=== PATIENT | male | born 1965 ===

== ENCOUNTER 2018-05-03 09:41 | Day surgery (SDC) | payer BC ==
[2018-04-29 13:48] VITALS: BMI 23.2
[2018-05-03 10:18] VITALS: TEMP 98.2
[2018-05-03] MEDS ORDERED: LACTATED RINGERS 1,000 ML IV ONE (10:19)
[2018-05-03] MEDS ORDERED: LIDOCAINE 1% 20 ML VIAL (10MG/ML) FOR IV START INTRADERMA ONE (10:20)
[2018-05-03] MEDS ORDERED: fentaNYL (PF) 50 MCG/ML 2 ML AMP ONE (11:19)
[2018-05-03] MEDS ORDERED: MIDAZOLAM 2 MG/2 ML VIAL ONE (11:19)
[2018-05-03] MEDS ORDERED: PROPOFOL 10 MG/ML 20 ML VIAL IV ONE (11:19)
[2018-05-03] MEDS ORDERED: LIDOCAINE 1% INJ 10MG/ML (20 ML MDV) ONE (11:19)
--- NOTE | 2018-05-03 11:22 | P.GSHP ---
History of Present Illness H&P Date: 05/03/18 Chief Complaint: Screening colonoscopy This a 52-year-old male referred from Dr. Floyd. Patient presents today for screening colonoscopy. Past Medical History Past Medical History: Chest Pain / Angina Additional Past Medical History / Comment(s): had episode of chest pain- dr told him to take aspirin, constipation, itchy skin, History of Any Multi-Drug Resistant Organisms: None Reported Past Surgical History: No Surgical Hx Reported Past Anesthesia/Blood Transfusion Reactions: No Reported Reaction Smoking Status: Current every day smoker - Past Family History Mother Family Medical History: No Reported History Medications and Allergies Home Medications Medication Instructions Recorded Confirmed Type Aspirn 81 mg PO DAILY 04/29/18 04/29/18 History Allergies Allergy/AdvReac Type Severity Reaction Status Date / Time No Known Allergies Allergy Verified 04/29/18 13:36 Surgical - Exam Vital Signs Temp Pulse Resp BP Pulse Ox 98.2 F 95 18 118/68 7 L 05/03/18 10:16 05/03/18 10:16 05/03/18 10:16 05/03/18 10:16 05/03/18 10:16 - General well developed, no distress - Eyes PERRL - ENT normal pinna - Neck no masses - Respiratory normal expansion - Cardiovascular Rhythm: regular - Abdomen Abdomen: soft, non tender Assessment and Plan Assessment: We'll perform screening colonoscopy
--- NOTE | 2018-05-03 11:33 | P.OP ---
Date of Procedure: 05/03/18 Preoperative Diagnosis: Screening colonoscopy Postoperative Diagnosis: Diverticulosis Procedure(s) Performed: Colonoscopy Anesthesia: MAC Surgeon: Gagandeep Kumar Pathology: none sent Condition: stable Disposition: PACU Description of Procedure: PROCEDURE: The patient was placed on the endoscopy table in the lateral position. Digital rectal examination was performed which revealed no abnormalities. The prostate was symmetrical without nodules. Flexible colonoscope was then placed in the patient's anus and passed throughout the entire colon. The ileocecal valve was visualized. The cecum, ascending, transverse, descending acolon were normal. In the sigmoid colon there is diverticulosis. The rectum was normal as well. The scope was then withdrawn through the anus. There is no significant hemorrhoids seen.
[2018-05-03 11:52] VITALS: RESP 16
[2018-05-03 12:09] VITALS: BP 125/80; PULSE 80
== END 2018-05-03 12:22 | disposition home or self-care (01) ==
LOC: ORWHC2ENDO 09:41
PROVIDERS: ATTEND Surgery
DX: Z12.11 Encounter for screening for malignant neoplasm of colon (principal); K57.30 Diverticulosis of large intestine without perforation or abscess without bleeding; Z79.82 Long term (current) use of aspirin; F17.200 Nicotine dependence, unspecified, uncomplicated
CPT/HCPCS: J2250; J2001; J3010; J2704; G0121

== ENCOUNTER → 2022-10-03 | Outpatient (CLI) | payer BC ==
[2022-10-03 16:55] LABS: Basophils # (A) 0.07 X 10*3/uL (0.00-0.10); Basophils % (A) 0.8 %; Eosinophils # (A) 0.59 X 10*3/uL (0.04-0.35); Eosinophils % (A) 6.6 %; HCT 47.3 % (39.6-50.0); HGB 15.4 g/dL (13.0-17.0); Immature Grans, Automated 0.3 %; Lymphocytes # (A) 1.95 X 10*3/uL (0.90-5.00); Lymphocytes % (A) 21.8 %; MCH 30.9 pg (27.0-32.0); MCHC 32.6 g/dL (32.0-37.0); Mean Platelet Volume 11.3 fL (9.5-12.2); Monocytes # (A) 1.15 X 10*3/uL (0.20-1.00); Monocytes % (A) 12.9 %; NRBC Per 100 WBC 0 /100 WBCS (0.0-0.0); Neutrophils # (A) 5.15 X 10*3/uL (1.80-7.70); Neutrophils % (A) 57.6 %; Platelet Count 280 X 10*3/uL (140-440); RBC 4.98 X 10*6/uL (4.40-5.60); RDW 12.9 % (11.5-14.5); WBC 8.94 X 10*3/uL (4.50-10.00)
== END | disposition home or self-care (01) ==
LOC: LABWHC1 10:21
PROVIDERS: ATTEND Surgery
DX: Z01.812 Encounter for preprocedural laboratory examination (principal); I49.8 Other specified cardiac arrhythmias; R94.31 Abnormal electrocardiogram [ECG] [EKG]
CPT/HCPCS: 85025; 93005

== ENCOUNTER 2023-01-19 08:13 | Day surgery (SDC) | payer BC ==
[~2023-01-19 08:13] MED LIST: ACETAMINOPHEN TAB 500 MG TAB PO PRN; DEXAMETHASONE SOD PHOSPHATE 4 MG/ML 1 ML VIAL IV ONE; HEPARIN SODIUM,PORCINE/PF 5,000 UNIT/0.5 ML SYRINGE SQ PRN; HYDROmorphone 0.5 MG/0.5 ML SYRINGE IVP PRN; LACTATED RINGERS 1,000 ML IV SCH; LIDOCAINE 1% (10MG/ML) FOR IV START INTRADERMA PRN; ONDANSETRON 4 MG/2 ML VIAL IVP ONE; droPERidol 5 MG/2 ML VIAL IVP ONE
[2023-01-19 08:49] VITALS: TEMP 97.7
[2023-01-19] MEDS ORDERED: MIDAZOLAM 2 MG/2 ML VIAL IVP ONE (09:20)
[2023-01-19] MEDS ORDERED: TAMSULOSIN 0.4 MG CAP.ER.24H PO ONE (09:31)
--- NOTE | 2023-01-19 09:40 | P.GSHP ---
History of Present Illness H&P Date: 01/19/23 Chief Complaint: Left inguinal hernia This 57-year-old male who was recently diagnosed left internal hernia. Patient presents today for laparoscopic robotic-assisted repair. Past Medical History Past Medical History: Chest Pain / Angina Additional Past Medical History / Comment(s): had episode of chest pain- dr told him to take aspirin, constipation, itchy skin, History of Any Multi-Drug Resistant Organisms: None Reported Past Surgical History: No Surgical Hx Reported Additional Past Surgical History / Comment(s): colonoscopy Past Anesthesia/Blood Transfusion Reactions: No Reported Reaction Past Psychological History: No Psychological Hx Reported Smoking Status: Current every day smoker, V[employer] Past Alcohol Use History: Rare Additional Past Alcohol Use History / Comment(s): smokes 4-5 cigarettes daily, has smoked since age 16 Past Drug Use History: None Reported - Past Family History Mother Family Medical History: CVA/TIA Father Family Medical History: CVA/TIA Medications and Allergies Home Medications Medication Instructions Recorded Confirmed Type Cetirizine HCl [Zyrtec] 10 mg PO DAILY 10/06/22 01/13/23 History Cordycep Supplement 1 dose PO DAILY 10/06/22 01/13/23 History Psyllium Husk (with Sugar) 1 dose PO DAILY PRN 10/06/22 01/13/23 History [Metamucil Powder] Aspirin [Adult Low Dose Aspirin EC] 81 mg PO DAILY 01/13/23 01/13/23 History Allergies Allergy/AdvReac Type Severity Reaction Status Date / Time chemicals at work cause Allergy Unknown atopic Uncoded 01/13/23 11:06 dermatitis dermatitis from chemicals at work Surgical - Exam Vital Signs Temp Pulse Resp BP Pulse Ox 97.7 F 85 20 143/83 98 01/19/23 08:47 01/19/23 08:47 01/19/23 08:47 01/19/23 08:47 01/19/23 08:47 - General well developed, well nourished, no distress - Eyes PERRL - ENT normal pinna - Neck no masses - Respiratory normal expansion - Cardiovascular Rhythm: regular - Abdomen Abdomen: soft, non tender Hernia: inguinal (Left inguinal hernia) Assessment and Plan Assessment: Left internal hernia. We'll perform laparoscopic robotic system repair.
[2023-01-19] MEDS ORDERED: fentaNYL (PF) 50 MCG/ML 2 ML AMP ONE (09:50)
[2023-01-19] MEDS ORDERED: ROPIVACAINE 5 MG/ML 30 ML VIAL ONE (09:50)
[2023-01-19] MEDS ORDERED: LIDOCAINE 4% LTA KIT (4 ML) TOPICAL ONE (09:50)
[2023-01-19] MEDS ORDERED: PROPOFOL 10 MG/ML 20 ML VIAL IV ONE (09:50)
[2023-01-19] MEDS ORDERED: GLYCOPYRROLATE 0.2 MG/ML 2 ML VIAL ONE (09:50)
[2023-01-19] MEDS ORDERED: SODIUM CHLORIDE 0.9% (PF) 10 ML VIAL ONE (09:50)
[2023-01-19] MEDS ORDERED: DEXAMETHASONE SOD PHOSPHATE 4 MG/ML 1 ML VIAL ONE (09:50)
[2023-01-19] MEDS ORDERED: NEOSTIGMINE 1 MG/ML 10 ML VIAL ONE (09:50)
[2023-01-19] MEDS ORDERED: LIDOCAINE 2% INJ 20 MG/ML (2 ML VIAL) ONE (09:50)
[2023-01-19] MEDS ORDERED: ROCURONIUM 10 MG/ML (5 ML VIAL) IV ONE (09:50)
[2023-01-19] MEDS ORDERED: KETAMINE 10 MG/ML 20 ML VIAL ONE (09:50)
[2023-01-19] MEDS ORDERED: SUCCINYLCHOLINE CHLORIDE 200 MG/10 ML VIAL IV ONE (09:50)
[2023-01-19] MEDS ORDERED: KETOROLAC 15 MG/ML 1 ML VIAL ONE (09:50)
[2023-01-19] MEDS ORDERED: BUPIVACAINE (PF) 0.25% 30 ML VIAL SQ ONE (10:35)
[2023-01-19] MEDS ORDERED: LACTATED RINGERS 1,000 ML IV ONE (10:54)
--- NOTE | 2023-01-19 11:10 | P.OP ---
Date of Procedure: 01/19/23 Preoperative Diagnosis: Left inguinal hernia Postoperative Diagnosis: Bilateral internal hernia Left cord lipoma Procedure(s) Performed: Laparoscopic robotic system repair of bilateral inguinal hernia Excision of left cord lipoma Tap block Anesthesia: MECHELLE Surgeon: Gagandeep Kumar Estimated Blood Loss (ml): 5 Pathology: other (Left cord lipoma) Condition: stable Disposition: PACU Description of Procedure: The patient's placed on the operating table in the supine position. The patient received general anesthesia. The patient's abdomen was prepped and draped in usual sterile fashion. The skin was anesthetized 1% local Xylocaine at the incision sites. Using an 11 blade a skin incision was made at the umbilicus. The fascia was grasped with a Valdez and then the peritoneal cavity was entered with the Veress needle. Position of the Veress needle was confirmed with a positive drop test. After adequate insufflation a 5 mm trocar was placed into the peritoneal cavity. The Laparoscope was placed the peritoneal cavity. And a robotic 8 mm trocar was placed in the right lateral position and then another 8 mm robotic trochars placed in the left lateral position. The original 5 mm trocar was exchanged for a 12 mm trocar. A four-quadrant transversus abdominis plane block was then performed using 1% local Xylocaine. The patient was placed in reverse Trendelenburg and then the patient was docked to the robot. Next the peritoneum over top of the right inguinal hernia was incised and then using blunt and sharp dissection and electrocautery the hernia sac was dissected free from the floor of the inguinal canal. The hernia sac was completely reduced into the peritoneal cavity. And then using the Pro burial vault deliverer and installer mesh the hernia was repaired. The peritoneum was then sutured with 20V lock suture. Next the peritoneum over top of the left inguinal hernia was incised and then using blunt and sharp dissection and electrocautery the hernia sac was dissected free from the floor of the inguinal canal. The cord lipoma was dissected free sent to pathology. The hernia sac was completely reduced into the peritoneal cavity. And then using the Pro burial vault deliverer and installer mesh the hernia was repaired. The peritoneum was then sutured with 20V lock suture. The patient was then undocked the robot. The needle was withdrawn from the peritoneal cavity. The umbilical trocar site was closed with 0 Ethibond suture. The skin was closed interrupted 3-0 Monocryl suture. Dermabond dressing was applied. Patient was sent to recovery in stable condition.
--- NOTE | 2023-01-19 11:51 | P.ANPRN ---
Procedure Note - Anesthesia - Nerve Block Performed Bilateral Erector Spinae Single Time Out Performed: Yes Date of Procedure: 01/19/23 Procedure Start Time: Procedure Stop Time: Location of Patient: PreOp Indication: Acute Post-Operative Pain, Requested by Surgeon Sedation Type: Sedate with meaningful contact maintained Preparation: Sterile Prep Position: Prone Needle Types: Pajunk Needle Gauge: 21 Ultrasound used to visualize needle placement: Yes Ultrasound used to observe medication spread: Yes Blood Aspirated: No Pain Paresthesia on Injection Noted: No Resistance on Injection: Normal Image Stored and Saved: Yes Events: Uneventful and Well Tolerated (Ropivacaine 0.5% 15 mL plus normal saline 10 mL plus dexamethasone 4 mg given bilaterally at L1)
[2023-01-19 11:52] VITALS: RESP 16
[2023-01-19 12:48] VITALS: BP 160/77; PULSE 72
== END 2023-01-19 13:05 | disposition home or self-care (01) ==
LOC: OR 08:13
PROVIDERS: ATTEND Surgery
DX: K40.20 Bilateral inguinal hernia, without obstruction or gangrene, not specified as recurrent (principal); D17.6 Benign lipomatous neoplasm of spermatic cord; F17.210 Nicotine dependence, cigarettes, uncomplicated; F10.90 Alcohol use, unspecified, uncomplicated; Z79.82 Long term (current) use of aspirin; Z79.899 Other long term (current) drug therapy; Z88.8 Allergy status to other drugs, medicaments and biological substances
CPT/HCPCS: 49650; S2900; 64999; 88304

== ENCOUNTER → 2024-04-01 | Outpatient (CLI) | payer BC ==
--- NOTE | 2024-04-01 15:45 | MR ---
EXAMINATION TYPE: MR brain and iac wo/w con DATE OF EXAM: 04/01/2024 3:38 PM CLINICAL INDICATION: Male, 58 years old with history of H90.A22 SNSRNRL HEAR LOSS, UNI, L EAR; PHH, S udden onset left sided hearing loss, forgetfulness. COMPARISON: None TECHNIQUE: Multi planar, multi sequence imaging was performed through the brain. Specialized thin s equences were obtained through the internal auditory canals. Pre-and post gadolinium sequences were obtained. MR contrast: IV Contrast: 6 cc Gadavist FINDINGS: Cavum septum pellucidum et vergae. Mild degenerative patient with atrophy. Scattered foci of high T2 signal intensity are seen within the periventricular white matter. Midline structures show no abnorm ality. Diffusion-weighted imaging shows no evidence of restricted diffusion. The susceptibility weigh kelsey images do not reveal any evidence for micro-hemorrhage. The bone marrow signal is within normal limits. Paranasal sinuses and mastoid air cells: Mild scattered paranasal sinus disease. Visualized orbits: Orbital contents are intact. After administration of gadolinium, no abnormal enhancement is seen. The internal auditory canal sequences demonstrate no significant irregularity. The 7th cranial nerve s, 8 cranial nerves, and cerebellar pontine angles appear unremarkable. After the administration jane olinium, no abnormal enhancement is seen within the internal auditory canals. Vascular loop: None. IMPRESSION: 1. No evidence of intracranial mass nor acute/subacute CVA. 2. No evidence of internal auditory canal abnormality. 3. Nonspecific white matter changes, likely secondary to small vessel ischemic disease. [facility], Workstation: [id number], 04/01/2024 3:42 PM
== END | disposition home or self-care (01) ==
LOC: RADMRIMAIN 14:39
PROVIDERS: ATTEND Otolaryngology
DX: H90.A22 Sensorineural hearing loss, unilateral, left ear, with restricted hearing on the contralateral side (principal)
CPT/HCPCS: 70553